=== PATIENT | male | born 1990 | race African-American/Black ===

== ENCOUNTER 2019-10-22 03:31 | Emergency (ER) | payer SELFPAY ==
[2019-10-22 03:34] VITALS: BP 143/92; PULSE 72; RESP 16; TEMP 36.9; O2SAT 96; BMI 16.7
--- NOTE | 2019-10-22 03:42 | RAD_ITS ---
STUDY: X-RAY - LEFT HAND, ATTENTION THIRD FINGER REASON FOR EXAM: Male, 29 years old. DRILLED END OF MIDDLE FINGER -- WOUND IS LATERAL ASPECT OF DIP JOINT OF LT MIDDLE FINGER- LEVEL IS MARKED ON LATERAL VIEW TECHNIQUE: 3 view(s) of the finger were obtained. COMPARISON: None. FINDINGS: Normal metacarpal head. Normal metacarpophalangeal joint. Normal proximal phalanx. Normal middle phalanx. Normal distal phalanx. Normal proximal interphalangeal joint. Normal distal interphalangeal joint. There are numerous small metallic densities, which probably represent foreign bodies on the skin. There is no definite demonstration of a foreign body within soft tissues, however, a metallic foreign body cannot be excluded, given the presence of numerous overlying metallic artifacts. RAD/Finger(s) Min 2 Views IMPRESSION: No demonstrated fracture, dislocation, or destructive osseous lesion. Numerous small metallic densities overlying the skin. Foreign body within the wound cannot be excluded. Electronically Signed: Erik Barber MD at 4:15 EDT , Service support ,
--- NOTE | 2019-10-22 03:43 | ED.DCSUM_ITS ---
History of Present Illness Chief Complaint: Wound Informant: Patient Occurred: Today - JPTA Mechanism/Context: Injury Context: Sudden Onset Timing: Continuous Quality of Pain: - - sore Location: left middle finger Current Severity: Severe Maximum Severity: Severe Worsened by: movement Relieved by: nothing Associated Symptoms: Negative for: Parasthesia, Weakness, Loss of Funtion Narrative: Working on his car, accidentally drilled a drill bit into his left middle finger. He had to reverse the drill in order to get that that out, which it appeared to do intact. [id number]. Tetanus Immunization: >10 years - Past Medical History (1) CAD (coronary artery disease) Status: Chronic Past Medical History - Allergies and Home Meds Allergies/Adverse Reactions: Allergies No Known Allergies Allergy (Verified 10/22/19 03:33) Lives: Spouse/ Significant Other Review of Systems Musculoskeletal: Reports: Extremity Pain Skin: Reports: Wounds Neurological: Denies: Headache, Weakness, Numbness Physical Exam Vital Signs/Narrative: Vital Signs Temp Pulse Resp BP Pulse Ox 10/22/19 03:34 98.5 F 72 16 143/92 H 96 General: Well nourished, Well developed, - - NAD but in pain Head: Normocephalic, Atraumatic Extremeties: Limited range of motion left middle finger, no subungual hematoma, tender to distal phalanx. No deformity. No active bleeding or discharge from his wound. Skin: Normal color, No rash, Trauma - Single puncture wound at the radial aspect distal phalanx left middle finger. It is just distal to the DIPJ. There is no active bleeding or discharge. There is no exit wound on the other side. No obvious foreign body. Exam somewhat limited because his hands are covered in dirt/grease. Neurological: Alert, Oriented x3, Cranial nerves II-XII grossly intact, Normal Strength, Normal Sensation, Normal Gait Psychological: Normal affect, Normal Mood Diagnostic/Tx/Re-eval Clinical Impression(s) from Imaging Studies Finger X-Ray 10/22/19 03:42 IMPRESSION: No demonstrated fracture, dislocation, or destructive osseous lesion. Numerous small metallic densities overlying the skin. Foreign body within the wound cannot be excluded. Electronically Signed: Erik Barebr MD at 4:15 EDT , Service support , - Medical Decision Making As above I am not able to completely rule out a small metallic foreign body in the puncture wound. However if this is the case, it is not amenable to easy removal nonsurgically here in the emergency department. His hand is black with dirt. We cleansed it with industrial soap, and then soaked him in chlorhexidin e/saline for 15-20 minutes. He was given pain medication which helped. He was started on Duricef. The wound was then dressed with bacitracin. In inspecting it further with the patient, the puncture wound is distal to the DIPJ and it seems that he likely directed the drill bit dorsal to the bone and less likely into the joint but obviously since it is not there now, we cannot rule that out for sure. I am referring him to orthopedics in follow-up. ED Disposition - Plan for ED Patient: Disposition: Home or Assisted Living Diagnosis: Puncture wound of finger of left hand Instructions: ED Wound Puncture General Prescriptions: Cefadroxil Hydrate [Duricef] 500 mg PO BID 7 Days #14 cap Prescription Printed Oxycodone HCl/Acetaminophen [Percocet 5/325] 1 tab PO Q6H PRN PRN 2 Days #8 tab PRN Reason: Pain Prescription Printed Referrals: Franci Fontanez DO [STAFF PHYSICIAN] - 3-5 Days if not improving
[2019-10-22] MEDS: Cefadroxil 500 MG CAPSULE PO (03:58)
[2019-10-22] MEDS: oxyCODONE 5 MG Tablet PO (03:58)
[2019-10-22] MEDS: Diphth,Pertuss(Acell),Tet Vac 0.5 ML Vial IM (03:59)
[2019-10-22 04:56] VITALS: BP 133/78; PULSE 74; RESP 16; O2SAT 97
== END 2019-10-22 05:03 | disposition home or self-care (01) ==
PROVIDERS: Emergency Provider Emergency Medicine
DX: S61.233A Puncture wound without foreign body of left middle finger without damage to nail, initial encounter (principal); W29.8XXA Contact with other powered hand tools and household machinery, initial encounter; Y93.9 Activity, unspecified; Y92.9 Unspecified place or not applicable; Y99.9 Unspecified external cause status; I25.10 Atherosclerotic heart disease of native coronary artery without angina pectoris; Z79.82 Long term (current) use of aspirin
CPT/HCPCS: 73140; 90715; 99283

== ENCOUNTER 2019-11-25 00:43 | Emergency (ER) | payer SELFPAY ==
[2019-11-25 00:49] VITALS: BP 166/97; PULSE 77; RESP 16; TEMP 36.1; O2SAT 98; BMI 37.8
--- NOTE | 2019-11-25 00:49 | ED.VIS.LOWEX ---
History of Present Illness Chief Complaint: Lower Extremity Injury Detail of Chief Complaint: toe pain Informant: Patient Onset: Weeks - 1-2 Context: Gradual Onset Timing: Continuous Quality of Pain: - - sore Location: multiple toes, both feet Current Severity: Moderate Maximum Severity: Moderate Worsened by: palpation Relieved by: leaving alone Associated Symptoms: Negative for: Parasthesia, Weakness, Loss of Funtion Narrative: Patient states he has been having toe pain for days or weeks, multiple toes on both feet, he has noticed that some have become discolored for no obvious reason. Today, he states his right fifth toe was a little swollen so he pushed on it and some milky fluid came out of the area which is at the base of the nail dorsally. For this reason he presents the emergency department. He states he has no doctor locally, he just recently moved here from [place]. He states he is on hormone replacement therapy but otherwise is healthy. Past Medical History - Allergies and Home Meds Allergies/Adverse Reactions: Allergies No Known Allergies Allergy (Verified 11/25/19 00:47) Primary Care Physician: Care Physician,No Primary [Primary Care Provider] - Past Medical History: None Lives: Spouse/ Significant Other Smoking Status: Current every day smoker Review of Systems General: Denies: Chills, Fever, Sweats Musculoskeletal: Reports: Extremity Pain Skin: Reports: Abscess - See HPI. Denies: Rash Neurological: Denies: Headache, Weakness, Numbness Physical Exam Inital Vital Signs reviewed: Yes - Extremity Exam Right Toe: - - Normal-appearing right fifth toe that is tender at the base of the nail, throughout the middle of the toe. No expressible fluid, no abscess seen. No signs of obvious skin abnormality. Left Toe: - - Several toenails mostly at the peroneal aspect of the foot, that are partially darkened in color. The nails are thickened. They are trimmed. There are no ingrown toenails. No sign of any acute infection, abscess, they are mildly tender. General: Well nourished, Well developed, - - Well-appearing, no distress Head: Normocephalic, Atraumatic Skin: Normal color, No rash, No Trauma Neurological: Alert, Oriented x3, Cranial nerves II-XII grossly intact, Normal Strength, Normal Sensation, Normal Gait Psychological: Normal affect, Normal Mood Diagnostic/Tx/Re-eval - Medical Decision Making Patient may have a small abscess in his right fifth toe that he already treated at home. The exam is pretty unremarkable, but it would be difficult to rule out an early cellulitis. I will place him on a week of cephalexin empirically. If he has onychomycosis, this is a separate issue that he can follow-up with podiatry for. ED Disposition - Plan for ED Patient: Disposition: Home or Assisted Living Diagnosis: Toenail fungus, Infection of toe Instructions: ED FINGERNAIL INFECTION Fungal, ED Cellulitis Prescriptions: Cephalexin [Keflex] 500 mg PO TID 7 Days #21 cap Prescription Printed Referrals: Farnaz Mooney DPM [STAFF PHYSICIAN] - (call for appt)
== END 2019-11-25 01:07 | disposition home or self-care (01) ==
LOC: ED 00:57
PROVIDERS: Emergency Provider Emergency Medicine
DX: B35.1 Tinea unguium (principal); F17.200 Nicotine dependence, unspecified, uncomplicated
CPT/HCPCS: 99282

== ENCOUNTER 2020-03-06 13:27 | Emergency (ER) | payer SELFPAY ==
[2020-03-06 13:27] VITALS: BP 177/102; PULSE 79; RESP 16; TEMP 36.4; O2SAT 98; BMI 35.5
--- NOTE | 2020-03-06 13:55 | ED.DCSUM_ITS ---
History of Present Illness Informant: Patient Onset: Days - 3 days Context: Gradual Onset Timing: Continuous Quality: Aching Location: Forehead Current Severity: Mild Maximum Severity: Mild Worsened by: Swallowing, Eating Solids, Drinking Liquids Relieved by: NSAIDs Associated Symptoms: Nasal Congestion, Headache, Sinus Pressure, Nonproductive cough. Negative for: Myalgias, Nausea, Vomiting, Diarrhea, Shortness of Breath, Chest Pain, Hemoptysis, Productive Cough Narrative: 29-year-old male presents with nonproductive cough nasal congestion postnasal drip and headache. No fevers or vomiting. No chest pain or shortness of breath. No wheezing. No vomiting or diarrhea. No neck pain. He is not lightheaded or dizzy. No trauma. No difficulty breathing or swallowing. He is not concerned for COVID-19. He has not used anything [id number]. He denies any significant past medical history. Prior similar symptoms: No Recent Illness/Hospitalization: No <Alonso Locke - Last Filed: 03/06/20 15:18> <Danny Krishnamurthy - Last Filed: 03/06/20 15:36> Chief Complaint: Cough Past Medical History Prior records reviewed: Yes Past Medical History: None Surgical History: no surgical history Lives: With Family Smoking Status: Current some day smoker Alcohol: Occasional Drugs: None <Alonso Locke - Last Filed: 03/06/20 15:18> <Danny Krishnamurthy - Last Filed: 03/06/20 15:36> - Allergies and Home Meds Allergies/Adverse Reactions: Allergies No Known Allergies Allergy (Verified 03/06/20 13:30) Primary Care Physician: Henry Campbell MD [STAFF PHYSICIAN] - As soon as possible Review of Systems General: Denies: Chills, Fever, Malaise, Sweats Eyes: Denies: Visual changes - bilaterally, Diplopia ENT: Reports: Rhinorrhea, Sore throat. Denies: Bilateral ear pain, Left ear pain, Right ear pain Cardiovascular: Denies: Chest pain, Palpitations, Heart racing Respiratory: Reports: Cough. Denies: Dyspnea, Sputum, Dyspnea on exertion, O rthopnea, Paroxysmal nocturnal dyspnea Gastrointestinal: Denies: Abdominal pain, Nausea, Vomiting, Diarrhea, Melena, Hematochezia Genitourinary: Denies: Dysuria, Hematuria, Frequency Musculoskeletal: Denies: Myalgias, Arthralgias, Neck pain, Back pain, Swelling, Extremity Pain Skin: Denies: Rash, Wounds Neurological: Denies: Headache, Weakness, Numbness <Alonso Locke - Last Filed: 03/06/20 15:18> Physical Exam Vital Signs/Narrative: Vital Signs Temp Pulse Resp BP Pulse Ox 03/06/20 13:27 97.6 F L 79 16 177/102 H 98 Inital Vital Signs reviewed: Yes General: Well nourished, Well developed Head: Normocephalic, Atraumatic Eyes: Perrl, EOMI Ears: Normal external canal, TM's clear Nose: Congestion. Negative for: Erythema, Swollen Turbinates Mouth/Throat: Normal Inspection, Airway Patent, Posterior Oropharyngeal Erythema. Negative for: Dry Mucous Membranes Tonsils: Right Tonsilar Erythema, Left Tonsilar Erythema, Right Tonsilar Swelling, Left Tonsilar Swelling. Negative for: Right Tonsilar Exudates, Left Tonsilar Exudates Neck: Supple, Nontender, No Lymphadenopathy, No Meningismus Cardiovascular: Regular rate, Regular rhythm, No murmurs Respiratory: No distress, CTA bilaterally, Chest nontender Abdomen: Soft, Nontender, Nondistended, Normal bowel sounds Back: Nontender, Normal Inspection. Negative for: CVA tenderness, Spinal tenderness Extremities: Nontender, No edema. Negative for: Tenderness, Edema, Calf Tenderness Skin: Normal color, No rash Neurological: Alert, Oriented x3, Cranial nerves II-XII grossly intact, Normal Strength, Normal Sensation Psychological: Normal affect, Normal Mood <Alonso Locke - Last Filed: 03/06/20 15:18> Vital Signs/Narrative: Vital Signs Temp Pulse Resp BP Pulse Ox 03/06/20 13:27 97.6 F L 79 16 177/102 H 98 <Krishnamurthy,Danny - Last Filed: 03/06/20 15:36> Diagnostic/Tx/Re-eval 03/06/20 14:08 Mucosa - Throat Group A Streptococcus Rapid Screen - Preliminary - Medical Decision Making Rapid strep was negative. The patient is tolerating by mouth he has no evidence of peritonsillar abscess. His vital signs are stable other than a mildly elevated blood pressure. Patient was given referral to a primary care physician to establish with. He was advised to keep track of his blood pressures at home. We will prescribe anti- inflammatories and have him follow-up with primary care or return for worsening symptoms. At this time his symptoms not consistent with COVID-19 but I did offer him a test however he declined <Alonso Locke - Last Filed: 03/06/20 15:18> - Medical Decision Making Independent history and physical was performed. Patient presents because of upper respiratory symptoms. His daughter was diagnosed with strep. He is concerned because his blood pressure is elevated. He denies headache, visual, ocular auditory symptoms. Denies neck pain or neck stiffness. He denies cardiac respiratory symptoms. He has no GI symptoms. He denies paresthesia, anesthesia or motor weakness. He denies problems with his balance. He has been told his blood pressure was elevated in the past. He is on no antihypertensive meds. There is family history of hypertension. Vital signs are marked for an elevated blood pressure. HEENT exam is unremarkable. Heart lung exam is normal. Rapid strep was negative. Patient has asymptomatic elevated blood pressure reading. He is to follow-up with his primary care physician. <Danny Krishnamurthy - Last Filed: 03/06/20 15:36> ED Disposition <Alonso Locke - Last Filed: 03/06/20 15:18> <Danny Krishnamurthy - Last Filed: 03/06/20 15:36> - Plan for ED Patient: Disposition: Home or Assisted Living Diagnosis: Viral URI with cough Instructions: ED HBP No Tx, ED URI Viral Prescriptions: Fluticasone 0.05% [Flonase Nasal [place]] 2 spray NASAL DAILY #1 nasal.sry Transmission Status: Received by [facility] Naproxen [Naprosyn] 500 mg PO BID #20 tab Transmission Status: Received by [facility] Cetirizine HCl [Zyrtec] 10 mg PO DAILY #30 tab Transmission Status: Received by [facility] Referrals: Henry Campbell MD [STAFF PHYSICIAN] - As soon as possible
[2020-03-06] MEDS: dexAMETHasone 10 MG/ML Vial PO.IVFORM (15:51)
== END 2020-03-06 15:52 | disposition home or self-care (01) ==
PROVIDERS: Emergency Provider Physician Assistant Medical
DX: J06.9 Acute upper respiratory infection, unspecified (principal); R03.0 Elevated blood-pressure reading, without diagnosis of hypertension; F17.200 Nicotine dependence, unspecified, uncomplicated
CPT/HCPCS: 87880; 99283